=== PATIENT | female | born 1935 | race Caucasian/White ===

== ENCOUNTER 2023-08-22 11:31 | Emergency (ER) | payer MEDICARE, MEDICAID ==
[2023-08-22 11:54] LABS: HEMATOCRIT 40.6 % (33.0-47.0); HEMOGLOBIN 13.5 g/dL (12.0-16.0); MEAN CORPUSCULAR HEMOGLOBIN 25.6 pg (26.0-32.0); MEAN CORPUSCULAR HGB CONC 33.3 g/dL (32.0-36.0); MEAN CORPUSCULAR VOLUME 76.9 fL (78.0-93.0); PLATELET COUNT,PLT 389 x10^3/uL (130-400); RED BLOOD CELL COUNT 5.28 x10^6/uL (4.00-5.50); WHITE BLOOD CELL COUNT,WBC 24.7 x10^3/uL (4.0-10.0)
[2023-08-22] MEDS: Sodium Chloride 0.9% 1,000 ML IV ONE (11:57)
[2023-08-22 12:01] LABS: BAND PERCENT MAN 3 % (0-6); LYMPHOCYTES ABSOLUTE MAN 0.7 x10^3/uL (1.0-4.8); LYMPHOCYTES PERCENT MAN 3 % (25-50); MONOCYTES ABSOLUTE MAN 1.7 x10^3/uL (0.0-0.8); MONOCYTES PERCENT MAN 7 % (2-11); NEUTROPHILS ABSOLUTE MAN 22.2 x10^3/uL (1.8-7.7); SEG NEUTROPHILS PERCENT MAN 87 % (50-80)
[2023-08-22 12:02] LABS: MICROCYTOSIS 1+ SLIGHT; PLATELET COUNT ESTIMATE ADEQUATE
[2023-08-22] MEDS: Ondansetron 4 MG/2 ML SDV IVPUSH ONE (12:09)
[2023-08-22 12:10] LABS: A/G RATIO 0.64; ALANINE AMINOTRANSFERASE,ALT 58 U/L (14-59); ALBUMIN 3.2 g/dL (3.4-5.0); ALKALINE PHOSPHATASE 139 U/L (46-116); ASPARTATE AMNIOTRANSFERASE,AST 53 U/L (15-37); BILIRUBIN TOTAL 0.7 mg/dL (0.2-1.0); BLOOD UREA NITROGEN,BUN 11 mg/dL (7-18); C-REACTIVE PROTEIN 8.58 mg/dL (<=0.30); CALCIUM 9.3 mg/dL (8.5-10.1); CARBON DIOXIDE,CO2 23 mmol/L (21-32); CHLORIDE,CL 93 mmol/L (98-107); CREATININE 0.8 mg/dL (0.55-1.02); GLUCOSE RANDOM 168 mg/dL (70-99); POTASSIUM,K 4.8 mmol/L (3.5-5.1); PROTEIN TOTAL,TP 8.2 g/dL (6.4-8.2)
[2023-08-22] MEDS: Pantoprazole 40 MG Vial IVPUSH ONE (12:10)
[2023-08-22 12:11] LABS: ANION GAP 16.8 mmol/L (5-15); ESTIMATED GFR 71 mL/min (>=60); SODIUM,NA 128 mmol/L (136-145)
[2023-08-22 12:12] LABS: LACTIC ACID 1.7 mmol/L (0.4-2.0)
[2023-08-22] MEDS: cefTRIAXone 1 GM Vial IVPUSH ONE (12:16)
[2023-08-22 14:00] LABS: BILIRUBIN,URINE SMALL (NEGATIVE); COLOR,URINE DARK YELLOW (YELLOW); GLUCOSE,URINE NEGATIVE (NEGATIVE); KETONES,URINE TRACE mg/dL (NEGATIVE); LEUKOCYTE ESTERASE,URINE SMALL (NEGATIVE); NITRITE,URINE POSITIVE (NEGATIVE); OCCULT BLOOD,URINE LARGE (NEGATIVE); PROTEIN,URINE 100 mg/dL (NEGATIVE); UROBILINOGEN,URINE 0.2 EU/dL (0.2)
[2023-08-22 14:07] LABS: APPEARANCE,URINE CLOUDY (CLEAR)
[2023-08-22 14:08] LABS: BACTERIA,URINE FEW /HPF (NOT SEEN); MUCUS,URINE OCCASIONAL /LPF (NOT SEEN); RBC,URINE 20-30 /HPF (NOT SEEN); SQUAMOUS EPITHELIAL CELLS,UR FEW /HPF (NOT SEEN); WBC,URINE 50-75 /HPF (NOT SEEN)
[2023-08-22] MEDS: Iopamidol 612 MG/ML 100 ML Bottle IVPUSH ONE (14:20)
== END 2023-08-22 15:45 | disposition short-term general hospital (02) ==
LOC: VM.ED 11:31
DX: K80.10 Calculus of gallbladder with chronic cholecystitis without obstruction (principal); N39.0 Urinary tract infection, site not specified; K85.90 Acute pancreatitis without necrosis or infection, unspecified; I11.0 Hypertensive heart disease with heart failure; I50.9 Heart failure, unspecified; E78.00 Pure hypercholesterolemia, unspecified; K21.9 Gastro-esophageal reflux disease without esophagitis; E11.9 Type 2 diabetes mellitus without complications; Z79.01 Long term (current) use of anticoagulants; Z79.82 Long term (current) use of aspirin; Z79.899 Other long term (current) drug therapy; Z88.1 Allergy status to other antibiotic agents; Z88.0 Allergy status to penicillin; Z88.8 Allergy status to other drugs, medicaments and biological substances; Z88.2 Allergy status to sulfonamides
CPT/HCPCS: 36415; 74177; 80053; 81001; 83605; 83690; 84145; 85025; 86140; 87040; 87086; 87088; 87186; 96361; 96374; 96375; 99285-25; C9113; J0696; J2405; J7030; Q9967

== ENCOUNTER 2023-11-14 14:36 | Emergency (ER) | payer MEDICARE, MEDICAID ==
[2023-11-14 15:09] LABS: BASOPHILS PERCENT AUTO 0.3 % (0.2-1.2); EOSINOPHILS ABSOLUTE AUTO 0.1 x10^3/uL (0.0-0.5); EOSINOPHILS PERCENT AUTO 0.9 % (0.0-4.0); HEMATOCRIT 36.5 % (33.0-47.0); HEMOGLOBIN 11.5 g/dL (12.0-16.0); IMMATURE GRAN ABSOLUTE AUTO 0.05 x10^3/uL (0.00-0.07); LYMPHOCYTES ABSOLUTE AUTO 1.6 x10^3/uL (1.0-4.8); LYMPHOCYTES PERCENT AUTO 22.8 % (25.0-50.0); MEAN CORPUSCULAR HEMOGLOBIN 26.2 pg (26.0-32.0); MEAN CORPUSCULAR HGB CONC 31.5 g/dL (32.0-36.0); MEAN CORPUSCULAR VOLUME 83.1 fL (78.0-93.0); MONOCYTES ABSOLUTE AUTO 0.9 x10^3/uL (0.0-0.8); MONOCYTES PERCENT AUTO 13.2 % (2.0-11.0); NEUTROPHILS ABSOLUTE AUTO 4.2 x10^3/uL (1.8-7.7); NEUTROPHILS PERCENT AUTO 62.1 % (50.0-80.0); RED BLOOD CELL COUNT 4.39 x10^6/uL (4.00-5.50); WHITE BLOOD CELL COUNT,WBC 6.8 x10^3/uL (4.0-10.0)
[2023-11-14 15:18] LABS: PLATELET COUNT,PLT 325 x10^3/uL (130-400)
[2023-11-14 15:23] LABS: PROTHROMBIN TIME 11.1 SEC (9.5-12.2); PTT,PARTIAL THROMBOPLSTIN TIME 30.9 SEC (23.6-33.6)
[2023-11-14 15:27] LABS: A/G RATIO 0.64; ALANINE AMINOTRANSFERASE,ALT 34 U/L (14-59); ALBUMIN 3.2 g/dL (3.4-5.0); ALKALINE PHOSPHATASE 84 U/L (46-116); AMYLASE 54 U/L (25-115); ASPARTATE AMNIOTRANSFERASE,AST 23 U/L (15-37); BILIRUBIN TOTAL 0.3 mg/dL (0.2-1.0); BLOOD UREA NITROGEN,BUN 11 mg/dL (7-18); C-REACTIVE PROTEIN 1.78 mg/dL (<=0.50); CALCIUM 9.3 mg/dL (8.5-10.1); CARBON DIOXIDE,CO2 25 mmol/L (21-32); CHLORIDE,CL 101 mmol/L (98-107); CREATININE 1.1 mg/dL (0.55-1.02); GLUCOSE RANDOM 103 mg/dL (70-99); LIPASE 38 U/L (19-71); MAGNESIUM 1.7 mg/dL (1.8-2.4); POTASSIUM,K 4.6 mmol/L (3.5-5.1); PROTEIN TOTAL,TP 8.2 g/dL (6.4-8.2); SODIUM,NA 138 mmol/L (136-145)
[2023-11-14 15:28] LABS: ANION GAP 16.6 mmol/L (5-15); ESTIMATED GFR 48 mL/min (>=60)
[2023-11-14 15:29] LABS: BILIRUBIN,URINE NEGATIVE (NEGATIVE); COLOR,URINE YELLOW (YELLOW); GLUCOSE,URINE NEGATIVE (NEGATIVE); KETONES,URINE NEGATIVE (NEGATIVE); LEUKOCYTE ESTERASE,URINE LARGE (NEGATIVE); NITRITE,URINE POSITIVE (NEGATIVE); OCCULT BLOOD,URINE SMALL (NEGATIVE); PH,URINE 6.5 (5.0-8.0); PROTEIN,URINE 30 mg/dL (NEGATIVE); UROBILINOGEN,URINE 0.2 EU/dL (0.2)
[2023-11-14 15:31] LABS: APPEARANCE,URINE TURBID (CLEAR)
[2023-11-14 15:32] LABS: LACTIC ACID 2.4 mmol/L (0.4-2.0)
[2023-11-14 15:37] LABS: AMORPHOUS SEDIMENT,URINE MANY; BACTERIA,URINE FEW /HPF (NOT SEEN); MUCUS,URINE OCCASIONAL /LPF (NOT SEEN); SQUAMOUS EPITHELIAL CELLS,UR FEW /HPF (NOT SEEN); WBC,URINE >100 /HPF (NOT SEEN)
[2023-11-14] MEDS: Sodium Chloride 0.9% 1,000 ML IV SCH (15:42)
[2023-11-14] MEDS: cefTRIAXone 2 GM Vial IVPUSH ONE (15:45)
[2023-11-14] MEDS: Ondansetron 4 MG/2 ML SDV IVPUSH ONE (15:53)
[2023-11-14] MEDS: Take Home: Ondansetron 4 MG Tab.DIS, 5 Tab Pack PO ONE (16:39)
== END 2023-11-14 16:39 | disposition home or self-care (01) ==
LOC: VM.ED 14:36
DX: N39.0 Urinary tract infection, site not specified (principal); I11.0 Hypertensive heart disease with heart failure; I50.9 Heart failure, unspecified; J44.9 Chronic obstructive pulmonary disease, unspecified; E11.9 Type 2 diabetes mellitus without complications; Z79.84 Long term (current) use of oral hypoglycemic drugs; Z79.899 Other long term (current) drug therapy; Z79.82 Long term (current) use of aspirin; Z88.0 Allergy status to penicillin; Z88.2 Allergy status to sulfonamides; Z88.8 Allergy status to other drugs, medicaments and biological substances
CPT/HCPCS: 36415; 80053; 81001; 82150; 83605; 83690; 83735; 85025; 85610; 85730; 86140; 87086; 87088; 87186; 96361; 96374; 96375; 99284; 99284-25; J0696; J2405; J7030; Q0162